=== PATIENT | male | born 1975 | race Caucasian/White ===

== ENCOUNTER → 2016-10-24 | Outpatient (CLI) | payer SELFPAY ==
--- NOTE | 2016-10-24 15:25 | CR ---
EXAMINATION: Cervical spine HISTORY: Strain of muscle COMPARISON: None TECHNIQUE: AP and lateral views FINDINGS: The cervical spinal alignment appears normal. The vertebral body heights and disc spaces a ppear grossly maintained. Moderate marginal osteophytes are noted at C5 and C6. The prevertebral sof t tissues are normal. Bone mineralization is normal. IMPRESSION: Mild degenerative changes without acute findings.
== END ==
LOC: MW.CHFP 11:44
PROVIDERS: ATTEND Nurse Practitioner Family
DX: S16.1XXA Strain of muscle, fascia and tendon at neck level, initial encounter (principal); M47.812 Spondylosis without myelopathy or radiculopathy, cervical region; X58.XXXA Exposure to other specified factors, initial encounter
CPT/HCPCS: 72040; 72040-26

== ENCOUNTER 2022-09-12 07:13 | Day surgery (SDC) | payer BC ==
[~2022-09-12 07:13] MED LIST: Lactated Ringers 1,000 ML IV SCH
[2022-09-12] MEDS ORDERED: Propofol 200 MG/20 ML SDV ONE (08:26)
[2022-09-12] MEDS ORDERED: Lidocaine 2% 5 ML SDV ONE (08:26)
[2022-09-12 08:57] VITALS: BP 105/64; PULSE 70
[2022-09-12] MEDS ORDERED: Lactated Ringers 1,000 ML IV SCH (09:00)
== END 2022-09-12 09:13 | disposition home or self-care (01) ==
LOC: MW.SDS 07:13
PROVIDERS: ATTEND Surgery
DX: Z12.11 Encounter for screening for malignant neoplasm of colon (principal); F41.9 Anxiety disorder, unspecified; G47.00 Insomnia, unspecified; J30.2 Other seasonal allergic rhinitis; Z79.899 Other long term (current) drug therapy; Z87.891 Personal history of nicotine dependence; Z86.16 Personal history of COVID-19; Z81.1 Family history of alcohol abuse and dependence; Z82.49 Family history of ischemic heart disease and other diseases of the circulatory system; Z83.3 Family history of diabetes mellitus
CPT/HCPCS: 45378; J2704; J7120; J3490